=== PATIENT | female | born 1955 | race Caucasian/White ===

== ENCOUNTER 2018-06-30 20:51 | Emergency (ER) | payer OTHER ==
[2018-06-30] MEDS ORDERED: Meclizine 25 MG Tab PO ONE (21:29)
--- NOTE | 2018-06-30 21:30 | EDM.PDOC ---
ED HPI GENERAL MEDICAL PROBLEM - General Stated Complaint: FELL AND HIT HEAD Time Seen by Provider: 06/30/18 20:51 Source of Information: Reports: Patient, Family History Limitations: Reports: No Limitations - History of Present Illness INITIAL COMMENTS - FREE TEXT/NARRATIVE: 62 y.o.w. 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 pt noticed a "bump at her back of here head" She felt woozy after the fall which made to come to the ED. No N/V no Dizziness, pt was ambulating fine, no other acute med issues. BP 159/71 RR 18 Pulse ox 97% on RA Pulse 78 Temp 97.4 Onset Date: 06/30/18 Onset Time: 18:00 Duration: Hour(s):, Intermittent Location: Reports: Head Quality: Reports: Ache, Dull Severity: Mild Improves with: Reports: Rest Worsens with: Reports: Movement Context: Reports: Trauma (fell of a ledder 2 feet ont o her head. ) Associated Symptoms: Reports: No Other Symptoms ED ROS GENERAL - Review of Systems Review Of Systems: See Below Constitutional: Reports: Malaise HEENT: Reports: No Symptoms Respiratory: Reports: No Symptoms Cardiovascular: Reports: No Symptoms Endocrine: Reports: No Symptoms GI/Abdominal: Reports: No Symptoms : Reports: No Symptoms Musculoskeletal: Reports: No Symptoms Skin: Reports: No Symptoms Neurological: Reports: Dizziness Psychiatric: Reports: No Symptoms Hematologic/Lymphatic: Reports: No Symptoms Immunologic: Reports: No Symptoms ED EXAM, NEURO - Physical Exam Exam: See Below Exam Limited By: No Limitations General Appearance: Alert, WD/WN, Mild Distress Eye Exam: Bilateral Eye: Normal Inspection Ears: Normal External Exam, Normal Canal Nose: Normal Inspection, Normal Mucosa Throat/Mouth: Normal Inspection, Normal Lips, Normal Voice, No Airway Compromise Head Exam: Normocephalic, Other (posterior shanel tenderness) Neck: Normal Inspection, Supple, Non-Tender, Full Range of Motion Respiratory/Chest: No Respiratory Distress, Lungs Clear, Normal Breath Sounds, Chest Non-Tender Cardiovascular: Normal Peripheral Pulses, Regular Rate, Rhythm, No Edema, No Gallop, No JVD, No Murmur, No Rub GI/Abdominal: Normal Bowel Sounds, Soft, Non-Tender, No Organomegaly, No Abnormal Bruit, No Mass, Pelvis Stable (Female) Exam: Deferred Rectal (Female) Exam: Deferred Neurological: Alert, Normal Mood/Affect, Normal Dorsiflexion, CN II-XII Intact, Normal Gait Back Exam: Normal Inspection, Full Range of Motion Extremities: Normal Inspection, Normal Range of Motion, Non-Tender Psychiatric: Normal Affect, Normal Mood Skin Exam: Warm, Dry, Intact, Normal Color, No Rash Course - Vital Signs Text/Narrative:: 62 y.o.w. 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 pt noticed a "bump at her back of here head" She felt woozy after the fall which made to come to the ED. No N/V no Dizziness, pt was ambulating fine, no other acute med issues. BP 159/71 RR 18 Pulse ox 97% on RA Pulse 78 Temp 97.4 PE: WNWD W F with with a possible concussion, pt christensen snot take ASA and is not on Coumadin. Imaging: CT head: Bilateral Subarachnoid bleed, minor. Repeat CT head at 5 am: Subarachnoid hemophage basically subsided Labs: Not indicated Impression: Fall, bilateral Subarachnoid Bleed, minor, minor SQ hematoma posterior shanel. 10.00 pm Consulting Radiology: bilateral subarachnoid bleed 10.04 pm Consultation: Dr. Calles, NeurosurgeonBib: Repeat CT in 6 hours, no Keppra, no Steroids. CT C-spine (?) 6.59 am: Consultation: [facility]: Subarachnoid bleed basically resolved, No heavy lifting for 6 weeks, Does not need f/u with neurosurgeon or clinic. Reexam: Pt symptoms were improving. Pt was asking me if she can take her home meds. I agreed. Her home meds included a ASA 81 however. Pt said on her HPT she does not take ASA. Pt was in her usual state of health on D/C Plan: D/C with instructions Last Recorded V/S: Last Vital Signs Temp Pulse 67 07/01/18 06:25 Resp 18 07/01/18 06:25 BP 148/69 H 07/01/18 06:25 Pulse Ox 99 07/01/18 06:25 - Orders/Labs/Meds Orders: Active Orders 24 hr Category Date Time Status Cooling Warming Measures [RC] ASDIRECTED Care 06/30/18 21:29 Active Head wo Cont [CT] Stat Exams 06/30/18 21:29 Taken Head wo Cont [CT] Stat Exams 07/01/18 05:57 Taken Ice Therapy [OM.PC] Routine Oth 06/30/18 21:29 Ordered Meds: Medications Discontinued Medications Generic Name Dose Route Start Last Admin Trade Name Maki PRN Reason Stop Dose Admin Meclizine HCl 25 mg 06/30/18 21:29 06/30/18 22:08 Antivert PO 06/30/18 21:30 25 mg ONETIME ONE Administration Departure - Departure Time of Disposition: 06:56 Disposition: Home, Self-Care 01 Condition: Good Clinical Impression: Fall, Subarachnoid bleed - Discharge Information Instructions: Head Injury, Adult Referrals: Akira Mendoza MD [Primary Care Provider] - Forms: ED Department Discharge Additional Instructions: No heavy lifting in next 6 weeks no Aspirin for 1 week, f/u as needed, come back if your symptoms get worse acutely - My Orders Last 24 Hours: My Active Orders 06/30/18 21:29 Cooling Warming Measures [RC] ASDIRECTED Head wo Cont [CT] Stat Ice Therapy [OM.PC] Routine 07/01/18 05:57 Head wo Cont [CT] Stat - Assessment/Plan Last 24 Hours: My Active Orders 06/30/18 21:29 Cooling Warming Measures [RC] ASDIRECTED Head wo Cont [CT] Stat Ice Therapy [OM.PC] Routine 07/01/18 05:57 Head wo Cont [CT] Stat
== END 2018-07-01 07:20 | disposition home or self-care (01) ==
LOC: FB.ED 20:51
DX: S06.6X0A Traumatic subarachnoid hemorrhage without loss of consciousness, initial encounter (principal); W11.XXXA Fall on and from ladder, initial encounter
CPT/HCPCS: 70450; 99284; A9270

== ENCOUNTER 2022-02-24 15:35 | Emergency (ER) | payer MEDICARE, OTHER ==
[2022-02-24 15:58] LABS: ESTIMATED GFR 71 mL/min (>60)
== END 2022-02-24 17:13 | disposition home or self-care (01) ==
LOC: FB.ED 15:35
DX: R07.81 Pleurodynia (principal); M50.90 Cervical disc disorder, unspecified, unspecified cervical region; E78.00 Pure hypercholesterolemia, unspecified; I10 Essential (primary) hypertension; Z79.4 Long term (current) use of insulin; Z79.899 Other long term (current) drug therapy
CPT/HCPCS: 36415; 71045; 80053; 83880; 84484; 85025; 93005; 99285

== ENCOUNTER 2023-06-01 03:49 | Emergency (ER) | payer OTHER, MEDICARE | END 2023-06-01 04:10 | disposition home or self-care (01) | LOC: FB.ED 03:49 | DX: T16.1XXA Foreign body in right ear, initial encounter (principal); I10 Essential (primary) hypertension; E78.00 Pure hypercholesterolemia, unspecified; J45.909 Unspecified asthma, uncomplicated; E11.9 Type 2 diabetes mellitus without complications; E66.9 Obesity, unspecified; Z79.4 Long term (current) use of insulin; Z79.899 Other long term (current) drug therapy; Z79.84 Long term (current) use of oral hypoglycemic drugs | CPT/HCPCS: 69200; 99282-25; 99283 ==